=== PATIENT | male | born 1935 | race Caucasian/White ===

== ENCOUNTER → 2021-03-21 09:29 | Outpatient (CLI) | payer MEDICARE, BC ==
[2020-10-01 08:31] VITALS: BMI 24.1
[~2021-03-21 09:29] MED LIST: ASPIRIN EC81 MG PO; AUGMENTIN 875-11 TAB PO; CARDURA4 MG PO; CELEXA40 MG PO; DONEPEZIL HCL10 MG PO; LISINOPRIL20 MG PO; NAMENDA10 MG PO; PRAVACHOL40 MG PO
== END | disposition home or self-care (01) ==
LOC: D.CT 09:29
PROVIDERS: ATTEND Family Medicine
DX: R91.8 Other nonspecific abnormal finding of lung field (principal)